=== PATIENT | male | born 1965 | race Caucasian/White ===

== ENCOUNTER 2017-01-28 13:26 | Emergency (ER) | payer BC ==
--- NOTE | 2017-01-28 14:03 | EDM.PDOC ---
ED HPI GENERAL MEDICAL PROBLEM - General Chief Complaint: Neurological Problem Stated Complaint: STROKE??? Time Seen by Provider: 01/28/17 13:37 Source of Information: Reports: Patient, Family, RN Notes Reviewed History Limitations: Reports: No Limitations - History of Present Illness INITIAL COMMENTS - FREE TEXT/NARRATIVE: 51-year-old gentleman presents emergency department today with facial droop on the right side he states it came on suddenly about 2 hours prior he noticed that he's had difficulty with his right eye being dry and he has started to drool of the corner of his mouth he denies any other symptoms no weakness in the extremities is able to speak without difficulty he does admit to being in the [place] but he denies any tick exposure - Related Data Allergies Allergy/AdvReac Type Severity Reaction Status Date / Time No Known Allergies Allergy Verified 01/28/17 13:33 Home Meds: Home Meds Hydrochlorothiazide 25 mg PO DAILY 01/28/17 [History] amLODIPine [Norvasc] 5 mg PO DAILY 01/28/17 [History] Past Medical History Cardiovascular History: Reports: Hypertension - Infectious Disease History Infectious Disease History: Reports: Chicken Pox, Measles, Mumps - Past Surgical History Musculoskeletal Surgical History: Reports: Arthroscopic Knee, Hip Replacement, Joint Replacement, Shoulder Surgery Social & Family History - Caffeine Use Caffeine Use: Reports: Coffee - Recreational Drug Use Recreational Drug Use: No ED ROS GENERAL - Review of Systems Review Of Systems: See Below Constitutional: Reports: No Symptoms HEENT: Reports: Eye Pain (Right side) Respiratory: Reports: No Symptoms Cardiovascular: Reports: No Symptoms GI/Abdominal: Reports: No Symptoms Musculoskeletal: Reports: No Symptoms Neurological: Reports: Other (Facial droop right side). Denies: Trouble Speaking, Change in Speech ED EXAM, NEURO - Physical Exam Exam: See Below Text/Narrative:: Examination of the face difficult to appreciate any asymmetry until he smiles slight facial droop is noted ears tympanic membranes clear landmarks and light reflex bilaterally canals are clear eyes pupils equal round reactive cranial nerves III is appropriate both eyelids are open extraocular eye movements are intact, no abnormalities noted in 4 or 6 bilaterally, cranial or 5 full range of motion of muscles of mastication without difficulty cranial nerve VII does have facial droop appreciated on the right side there is weakness in closure of the eyelid on the right side he can close it however it is easily opened with slight amount of pressure. Frowning of the forehead is appreciated and is spared on both sides no other abnormalities noted remainder of the cranial nerves Exam Limited By: No Limitations General Appearance: Alert, WD/WN, No Apparent Distress Respiratory/Chest: No Respiratory Distress Neurological: Alert, Normal Mood/Affect, Normal Gait Course - Vital Signs Last Recorded V/S: Last Vital Signs Temp 97.3 F 01/28/17 13:40 Pulse 95 01/28/17 13:40 Resp 18 01/28/17 13:40 BP 165/96 H 01/28/17 13:40 Pulse Ox 95 01/28/17 13:40 Departure - Departure Time of Disposition: 14:03 Disposition: Home, Self-Care 01 Condition: Good Clinical Impression: Right-sided Balderas's palsy - Discharge Information Referrals: PCP,None [Primary Care Provider] - Additional Instructions: Take full course of steroids, take full course of Valtrex, please use an artificial eye lubricant, please follow-up with your primary care provider upon return home and consider a Lyme titer, call return to the emergency department worsening of symptoms - Assessment/Plan Plan: Assessment Acuity = acute Site and laterality = Balderas's palsy right side grade 2 Etiology = unclear etiology concern for tickborne illness Manifestations = dry eye right side Location of injury = Home Lab values = none Plan Prescription written for tapering dose of prednisone starting at 60 mg per day also Valtrex thousand milligrams by mouth 3 times a day 7 and follow-up with his primary care provider upon return home for further evaluation Patient was in agreement with the plan all questions were answered, they were instructed to return to the emergency department or call for worsening symptoms. This note was dictated using [employer] voice recognition software please call with any questions.
[2017-01-28 14:49] VITALS: BP 138/102
== END 2017-01-28 15:29 | disposition home or self-care (01) ==
LOC: JP.ED 13:26
DX: G51.0 Bell's palsy (principal); I10 Essential (primary) hypertension; Z96.649 Presence of unspecified artificial hip joint; Z98.890 Other specified postprocedural states; Z79.899 Other long term (current) drug therapy
CPT/HCPCS: 36415; 70450; 80053; 85025; 85610; 85730; 93005; 99285-25

== ENCOUNTER 2022-12-24 13:32 | Emergency (ER) | payer BC ==
[2022-12-24 14:50] LABS: BASOPHILS PERCENT AUTO 0.2 % (0.1-1.3); EOSINOPHILS PERCENT AUTO 0.2 % (0.0-5.4); HEMATOCRIT 42.6 % (38.4-49.7); HEMOGLOBIN 14.6 g/dL (12.9-16.9); IMMATURE GRAN ABSOLUTE AUTO 0.07 K/uL (0.00-0.23); IMMATURE GRAN PERCENT AUTO 0.7 % (0.0-0.7); LYMPHOCYTES ABSOLUTE AUTO 1.27 K/uL (0.8-3.3); MEAN CORPUSCULAR HEMOGLOBIN 28.3 pg (31.6-35.5); MEAN CORPUSCULAR HGB CONC 34.3 g/dL (31.6-35.5); MEAN CORPUSCULAR VOLUME 82.7 fL (81.4-99.0); MONOCYTES PERCENT AUTO 4.7 % (3.3-12.6); NEUTROPHILS ABSOLUTE AUTO 8.72 K/uL (1.0-7.6); NEUTROPHILS PERCENT AUTO 82.2 % (40.0-78.1); PLATELET COUNT,PLT 186 K/uL (130-375); RED BLOOD CELL COUNT 5.15 M/uL (4.14-5.76); WHITE BLOOD CELL COUNT,WBC 10.6 K/uL (3.2-11.0)
[2022-12-24 14:55] LABS: BASOPHILS ABSOLUTE AUTO 0.02 K/uL (0.00-0.10); EOSINOPHILS ABSOLUTE AUTO 0.02 K/uL (0.00-0.40)
[2022-12-24 15:09] LABS: A/G RATIO 1.1 (1.2-2.2); ALANINE AMINOTRANSFERASE,ALT 42 U/L (12-78); ALKALINE PHOSPHATASE 70 U/L (46-116); ANION GAP 16.7 mmol/L (5.0-14.0); ASPARTATE AMNIOTRANSFERASE,AST 21 U/L (15-37); BILIRUBIN TOTAL 0.6 mg/dL (0.2-1.0); BLOOD UREA NITROGEN,BUN 18 mg/dL (7-18); CALCIUM 8.9 mg/dL (8.5-10.1); CARBON DIOXIDE,CO2 25 mmol/L (21-32); CHLORIDE,CL 101 mmol/L (100-108); CREATININE 1.2 mg/dL (0.8-1.3); EST CRCL DRUG DOSING (CG) 64.92 mL/min; ESTIMATED GFR 70 mL/min (>60); GLUCOSE RANDOM 164 mg/dL (74-106); POTASSIUM,K 3.7 mmol/L (3.6-5.2); PROTEIN TOTAL,TP 7.8 g/dL (6.4-8.2); SODIUM,NA 139 mmol/L (140-148)
[2022-12-24 16:23] VITALS: BP 139/84; PULSE 89
== END 2022-12-24 16:48 | disposition home or self-care (01) ==
LOC: JP.ED 13:32
DX: G45.4 Transient global amnesia (principal); I10 Essential (primary) hypertension; Z79.899 Other long term (current) drug therapy
CPT/HCPCS: 36415; 70450; 80053; 85025; 93005; 99284

== ENCOUNTER 2023-12-13 14:02 | Emergency (ER) | payer OTHER, BC ==
[2023-12-13 14:16] VITALS: BP 153/95; PULSE 111
[2023-12-13] MEDS: Iopamidol 755 Mg/ML 100 ML Bottle IV SCH (15:20)
[2023-12-13] MEDS: Sodium Chloride 0.9% 80 ML IV SCH (15:20)
== END 2023-12-13 16:19 | disposition home or self-care (01) ==
LOC: JP.ED 14:02
DX: H53.2 Diplopia (principal); I10 Essential (primary) hypertension; E11.9 Type 2 diabetes mellitus without complications; Z86.16 Personal history of COVID-19; Z79.899 Other long term (current) drug therapy; Z79.84 Long term (current) use of oral hypoglycemic drugs
CPT/HCPCS: 70450; 70481; 99284; J3490; Q9967